=== PATIENT | female | born 1965 | race Caucasian/White ===

== ENCOUNTER → 2016-12-21 | Outpatient (CLI) | payer BC, OTHER ==
--- NOTE | 2016-12-21 10:43 | REP ---
BILATERAL DIGITAL SCREENING MAMMOGRAM: 12/21/2016 COMPARISON: 12/10/2015, 12/16/2014, diagnostic, 12/09/2014, screening mammogram, 12/06/2013, 05/30/2012. CLINICAL HISTORY: Breast carcinoma left breast in 2010, ductal hyperplasia of right breast. Most recent right breast biopsies negative in 2014. FINDINGS: Standard two-view mammography with additional exaggerated CC views for each breast. Standard mammographic views show scattered fibroglandular elements in the parenchyma in a pattern and distribution unchanged. Stereotactic clip, upper outer quadrant right breast and surgical clip near the axilla, unchanged. On the exaggerated CC view on the right, there is a nodular area of tissue asymmetry which is superimposition of breast elements seen to be normal appearance on the standard right CC view. I do not see a dominant mass or suspicious clusters of microcalcification on the right. There are coarse benign calcifications on the right. The left breast shows multiple surgical clips and postoperative changes in the inner half on the CC view. There are axillary surgical clips noted as well as a fat replaced axillary node on that left side. Some skin thickening is again seen and unchanged. IMPRESSION: BIRADS ACR category 2, benign. Benign findings. Stable examination. No evidence of malignancy. Bilateral post biopsy markers and/or surgical clips as described. No new or suspicious findings. Recommend followup mammography in 1 year. This mammogram was interpreted with the aid of an FDA-approved computer-aided detection system. A. Negative x-ray reports should not delay biopsy if a dominant or clinically suspicious mass is present. B. Four to eight percent of cancers are not identified by x-ray. C. Adenosis and dense breasts may obscure an underlying neoplasm. The patient states she/he had a clinical breast exam in 06/2016. The patient letter being requested is M1. Signed by Mark Juan MD 12/21/2016 08:16 P
== END ==
LOC: M RAD 09:05
PROVIDERS: ATTEND Nurse Practitioner Women's Health
DX: Z12.31 Encounter for screening mammogram for malignant neoplasm of breast (principal); Z85.3 Personal history of malignant neoplasm of breast

== ENCOUNTER → 2017-01-23 | Outpatient (REF) | payer OTHER ==
[2017-01-24 20:56] LABS: LUTEINIZING HORMONE 16.5 mIU/mL
[2017-01-24 20:59] LABS: ESTRADIOL < 19.0 PG/ML; FOLLICLE STIMULATING HORMONE 26.2 mIU/mL
== END ==
LOC: M LAB REF 17:08
PROVIDERS: ATTEND Internal Medicine Medical Oncology
DX: C50.919 Malignant neoplasm of unspecified site of unspecified female breast (principal)

== ENCOUNTER → 2017-02-09 | Outpatient (REF) | payer OTHER | LOC: M LAB REF 08:35 | PROVIDERS: ATTEND Nurse Practitioner Family | DX: E87.5 Hyperkalemia (principal) ==

== ENCOUNTER → 2017-03-28 | Outpatient (REF) | payer OTHER ==
[~2017-03-28] MED LIST: ACYC400T PO; ADV250INH INH; ALLE24TA8 PO; ATEN50TA2 PO; ATOR1TAB19 PO; CALCCHW8 PO; FENO160T10 PO; FISH100049 PO; FLUC150T PO; HYDR50TAB PO; JANU100T PO; LOSA25TA8 PO; METH2.5TA PO; MONT10TA2 PO; MULTTAB24 PO; VITA50003 PO; VITATAB11 PO
== END ==
LOC: M SFHCCLAY 08:09
PROVIDERS: ATTEND Nurse Practitioner Family
DX: E11.9 Type 2 diabetes mellitus without complications (principal); I10 Essential (primary) hypertension; E55.9 Vitamin D deficiency, unspecified

== ENCOUNTER → 2017-04-03 | Outpatient (CLI) | payer BC, OTHER ==
[~2017-04-03] VITALS: Ht 152.4 cm; Wt 99.8 kg
[~2017-04-03] MED LIST changes: +NS 1,000 ML IV ONE; +PROPOFOL 200 MG/20 ML VIAL As Ordered ONE
--- NOTE | 2017-04-03 09:25 | ROOR ---
Patient Name: Jo Altamirano Procedure Date: 04/03/2017 9:06 AM Date of : 1965 Age: 51 Room: [facility] Gender: Female Note Status: Finalized Procedure: Total Colonoscopy to Cecum Indications: High risk colon cancer surveillance: Personal history of colonic polyps, Last colonoscopy: 2012 Providers: Johnny Santo MD Referring MD: Danitza Darby NP Requesting Provider: Medicines: Monitored Anesthesia Care Complications: No immediate complications. Procedure: Pre-Anesthesia Assessment: - The heart rate, respiratory rate, oxygen saturations, blood pressure, adequacy of pulmonary ventilation, and response to care were monitored throughout the procedure. The Colonoscope was introduced through the anus and advanced to the cecum, identified by appendiceal orifice and ileocecal valve. The colonoscopy was performed without difficulty. The patient tolerated the procedure well. The quality of the bowel preparation was excellent. Findings: The perianal and digital rectal examinations were normal. Non-bleeding internal hemorrhoids were found during retroflexion. The hemorrhoids were small and Grade I (internal hemorrhoids that do not prolapse). No other significant abnormalities were identified in a careful examination of the remainder of the colon. The exam was otherwise without abnormality on direct and retroflexion views. Impression: - Non-bleeding internal hemorrhoids. - The examination was otherwise normal on direct and retroflexion views. - No specimens collected. - The exam was otherwise normal to the cecum. Recommendation: - Patient has a contact number available for emergencies. The signs and symptoms of potential delayed complications were discussed with the patient. Return to normal activities tomorrow. Written discharge instructions were provided to the patient. - High fiber diet. - Discharge patient to home. - Continue present medications. - Repeat colonoscopy in 5 years for surveillance. - Return to referring physician. - The findings and recommendations were discussed with the patient's family. Johnny Santo MD Johnny Santo MD 04/03/2017 9:24:58 AM This report has been signed electronically. Number of Addenda: 0 Note Initiated On: 04/03/2017 9:06 AM Estimated Blood Loss: Estimated blood loss: none.
[2017-04-03 09:45] VITALS: BP 115/68
== END | disposition home or self-care (01) ==
LOC: M OPP 08:33
PROVIDERS: ATTEND Internal Medicine Gastroenterology
DX: Z12.11 Encounter for screening for malignant neoplasm of colon (principal); K64.0 First degree hemorrhoids; Z86.010 Personal history of colon polyps; I10 Essential (primary) hypertension; E78.5 Hyperlipidemia, unspecified; R01.1 Cardiac murmur, unspecified; E11.9 Type 2 diabetes mellitus without complications; Z85.3 Personal history of malignant neoplasm of breast; Z92.3 Personal history of irradiation; L40.9 Psoriasis, unspecified; Z78.0 Asymptomatic menopausal state; J45.909 Unspecified asthma, uncomplicated; R06.83 Snoring; Z86.19 Personal history of other infectious and parasitic diseases; Z91.040 Latex allergy status; Z88.0 Allergy status to penicillin; Z88.8 Allergy status to other drugs, medicaments and biological substances; Z88.2 Allergy status to sulfonamides; Z79.84 Long term (current) use of oral hypoglycemic drugs; Z79.899 Other long term (current) drug therapy

== ENCOUNTER 2017-08-01 13:47 | Emergency (ER) | payer BC, OTHER ==
[~2017-08-01] VITALS: Ht 152.4 cm; Wt 100.0 kg
[2017-08-01 13:47] VITALS: BP 147/68
[~2017-08-01 13:47] MED LIST changes: -NS 1,000 ML IV ONE; -PROPOFOL 200 MG/20 ML VIAL As Ordered ONE; +VITA1CAP40 PO; -VITA50003 PO
== END 2017-08-01 13:55 | disposition left against medical advice (07) ==
LOC: M ED 13:47
DX: N93.9 Abnormal uterine and vaginal bleeding, unspecified (principal); Z53.21 Procedure and treatment not carried out due to patient leaving prior to being seen by health care provider

== ENCOUNTER 2017-08-01 15:49 | Day surgery (SDC) | payer BC, OTHER ==
[2017-08-01] MEDS ORDERED: LR 1,000 ML IV SCH ×3 (16:00→22:00)
[2017-08-01 19:12] LABS: MEAN CORPUSCULAR HEMOGLOBIN 30.2 pg (27.0-33.0); MEAN CORPUSCULAR VOLUME 91.3 fl (80.0-96.0); RED CELL DISTRIBUTION WIDTH 13.4 % (11.5-14.5); WHITE BLOOD COUNT 10.1 10^3/uL (4.0-10.0)
[2017-08-01] MEDS ORDERED: fentaNYL 100 MCG/2 ML INJECTION (J3010) As Ordered ONE (20:32)
[2017-08-01] MEDS ORDERED: MIDAZOLAM INJ 2 MG/2 ML VIAL (J2250) As Ordered ONE (20:32)
[2017-08-01] MEDS ORDERED: ONDANSETRON 4MG/2ML VIAL (J2405) As Ordered ONE (20:38)
[2017-08-01] MEDS ORDERED: PROPOFOL 200 MG/20 ML VIAL As Ordered ONE (21:08)
[2017-08-01] MEDS ORDERED: LIDOCAINE 2% INJ 100 MG/5 ML SDV (FOR ANES.) As Ordered ONE (21:09)
[2017-08-01] MEDS ORDERED: IBUPROFEN 600 MG TAB As Ordered ONE (21:33)
[2017-08-01] MEDS ORDERED: IBUPROFEN 600 MG TAB PO PRN (21:45)
[2017-08-01] MEDS ORDERED: fentaNYL 100 MCG/2 ML INJECTION (J3010) IV PRN (22:00)
[2017-08-01] MEDS ORDERED: PERCOCET 5MG/325MG TAB PO PRN (22:00)
[2017-08-01] MEDS ORDERED: ONDANSETRON 4MG/2ML VIAL (J2405) IV PRN (22:00)
[2017-08-01 22:15] VITALS: BP 140/64
--- NOTE | 2017-08-02 08:47 | RO ---
DATE OF PROCEDURE: 08/01/2017 PREOPERATIVE DIAGNOSIS/INDICATION FOR SURGERY: Postmenopausal bleeding and 3 cm endometrial stripe. POSTOPERATIVE DIAGNOSES: 1. Postmenopausal bleeding and 3 cm endometrial stripe. 2. Intrauterine synechiae and polyp. PROCEDURE: Dilatation and curettage, hysteroscopy, and MyoSure endometrial resection with removal of polyp and synechiae. SURGEON: Verónica Mosqueda MD EDGE GRINDER MACHINE: ANESTHESIA: Monitored anesthesia care (MAC). BRIEF DESCRIPTION OF PROCEDURE AND FINDINGS: Jo was brought to the operating room where sufficient anesthesia was induced and she was prepped, draped and positioned in the usual sterile fashion with the bladder then emptied. 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 The anterior aspect of the cervix was grasped with a single tooth tenaculum. With some effort under anesthesia, it would be possible to approach this uterus from below. The uterus was then carefully evaluated with the cervix dilated and the MyoSure hysteroscope placed. As noted in the operative photos, some intrauterine synechiae and a small polyp were noted and some blood clot. All of which probably contributed together to create the degree of thickening seen on her preoperative ultrasound. The polyp itself was not 3 cm across based on the visual appearance, but of course there is no calipers at the end of he MyoSure. We were able to place the XL MyoSure and resect not only the polyp, but also the synechiae and several areas of endometrium that did appear to be bleeding despite the patient's menopausal state. Following this, we saw a normal tubal ostia and with the MyoSure resection completed, we also passed the endometrial curette and had a normal uterine cry throughout and then the procedure was ended. ESTIMATED BLOOD LOSS FOR PROCEDURE: About 10 mL. FLUID REPLACEMENT: Crystalloid. SPECIMENS: Endometrium. The sampling from the MyoSure and, of course, the curetting. COMPLICATIONS: None. CONDITION AND DISPOSITION: Jo tolerated the procedure well and was recovering in the recovery room in good condition.
== END 2017-08-01 22:40 | disposition home or self-care (01) ==
LOC: M SDC 15:49
PROVIDERS: ATTEND Obstetrics & Gynecology
DX: N84.0 Polyp of corpus uteri (principal); N95.0 Postmenopausal bleeding; N85.6 Intrauterine synechiae; I10 Essential (primary) hypertension; E11.9 Type 2 diabetes mellitus without complications; J45.909 Unspecified asthma, uncomplicated; Z79.51 Long term (current) use of inhaled steroids; Z79.899 Other long term (current) drug therapy; Z88.2 Allergy status to sulfonamides; Z88.0 Allergy status to penicillin
CPT/HCPCS: 36415; 58558; 85027; 86850; 86900; 86901; 88305; J2250; J2405; J3010

== ENCOUNTER → 2017-11-01 | Outpatient (CLI) | payer BC, OTHER | LOC: M RAD 16:44 | DX: N95.0 Postmenopausal bleeding (principal); N85.2 Hypertrophy of uterus; D25.9 Leiomyoma of uterus, unspecified | CPT/HCPCS: 76856 ==

== ENCOUNTER → 2017-12-05 | Outpatient (REF) | payer OTHER ==
[2017-12-05 12:28] LABS: HEMATOCRIT 44.7 % (36.0-47.0); HEMOGLOBIN 14.3 g/dl (12.0-16.0); MEAN CORPUSCULAR HEMOGLOBIN 29.2 pg (27.0-33.0); MEAN CORPUSCULAR VOLUME 91.2 fl (80.0-96.0); PLATELET COUNT, AUTOMATED 129 10^3/uL (150-450); RED CELL DISTRIBUTION WIDTH 14.2 % (11.5-14.5); WHITE BLOOD COUNT 8.3 10^3/uL (4.0-10.0)
[2017-12-05 12:58] LABS: TOTAL 25(OH) VITAMIN D 54.6 NG/ML (30.0-100.0)
[2017-12-05 13:02] LABS: ESTIMATED AVERAGE GLUCOSE 209 MG/DL (60-110); HEMOGLOBIN A1c 8.9 %
[2017-12-05 13:24] LABS: ALBUMIN 4.2 GM/DL (3.2-5.2); ALBUMIN/GLOBULIN RATIO 1.17 (1.00-1.93); ALKALINE PHOSPHATASE 74 U/L (45-117); ALT/SGPT 27 U/L (12-78); ANION GAP 13 MEQ/L (8-16); AST/SGOT 17 U/L (7-37); BILIRUBIN,TOTAL 0.9 MG/DL (0.2-1.0); BLOOD UREA NITROGEN 15 MG/DL (7-18); CALCIUM LEVEL 9.5 MG/DL (8.5-10.1); CARBON DIOXIDE LEVEL 25 MEQ/L (21-32); CHLORIDE LEVEL 98 MEQ/L (98-107); CHOLESTEROL LEVEL 220 MG/DL (<200); CHOLESTEROL RISK RATIO 5.641 (<5); CREATININE FOR GFR 0.71 MG/DL (0.55-1.30); GLOMERULAR FILTRATION RATE > 60.0 (>51); GLUCOSE, FASTING 237 MG/DL (70-100); HDL CHOLESTEROL 39 MG/DL (>40); NON-HDL-C 181 MG/DL; POTASSIUM SERUM 4.1 MEQ/L (3.5-5.1); SODIUM LEVEL 136 MEQ/L (136-145); TOTAL PROTEIN 7.8 GM/DL (6.4-8.2); TRIGLYCERIDES LEVEL 235 MG/DL (<150)
== END ==
LOC: M SFHCCLAY 09:36
DX: E11.9 Type 2 diabetes mellitus without complications (principal); E78.4 Other hyperlipidemia; E55.9 Vitamin D deficiency, unspecified

== ENCOUNTER → 2017-12-06 | Outpatient (REF) | payer OTHER ==
[2017-12-06 12:50] LABS: CREATININE, URINE 84.1 MG/DL; MALB URINE SIEMENS 54.2 MG/L; MAU/CREAT RATIO 64.4 MCG/MG (0.0-30.0); TOTAL PROTEIN,RANDOM URINE 14.8 MG/DL (0.0-12.0)
== END ==
LOC: M SFHCCLAY 08:09
DX: E11.9 Type 2 diabetes mellitus without complications (principal)

== ENCOUNTER → 2017-12-25 | Outpatient (CLI) | payer BC, OTHER | LOC: M RAD 09:02 | DX: Z12.31 Encounter for screening mammogram for malignant neoplasm of breast (principal); Z85.3 Personal history of malignant neoplasm of breast | CPT/HCPCS: 77067 ==

== ENCOUNTER → 2018-01-09 | Outpatient (REF) | payer OTHER ==
[2018-01-09 12:34] LABS: HEMATOCRIT 42.8 % (36.0-47.0); HEMOGLOBIN 13.8 g/dl (12.0-16.0); MEAN CORPUSCULAR HGB CONC 32.2 g/dl (32.0-36.5); PLATELET COUNT, AUTOMATED 182 10^3/uL (150-450); RED CELL DISTRIBUTION WIDTH 13.4 % (11.5-14.5); WHITE BLOOD COUNT 8.9 10^3/uL (4.0-10.0)
[2018-01-09 14:05] LABS: ESTIMATED AVERAGE GLUCOSE 197 MG/DL (60-110); HEMOGLOBIN A1c 8.5 %
== END ==
LOC: M SFHCCLAY 08:36
DX: E11.9 Type 2 diabetes mellitus without complications (principal)
CPT/HCPCS: 83036

== ENCOUNTER → 2018-03-06 | Outpatient (REF) | payer OTHER ==
[2018-03-06 11:41] LABS: CHOLESTEROL LEVEL 202 MG/DL (<200); CHOLESTEROL RISK RATIO 6.312 (<5); HDL CHOLESTEROL 32 MG/DL (>40); LDL CHOLESTEROL 136.8 MG/DL (<100); NON-HDL-C 170 MG/DL; TRIGLYCERIDES LEVEL 166 MG/DL (<150)
== END ==
LOC: M SFHCCLAY 07:58
DX: E78.4 Other hyperlipidemia (principal); E55.9 Vitamin D deficiency, unspecified

== ENCOUNTER → 2018-06-18 | Outpatient (REF) | payer OTHER ==
[2018-06-18 17:24] LABS: CHOLESTEROL LEVEL 203 MG/DL (<200); CHOLESTEROL RISK RATIO 5.342 (<5); ESTIMATED AVERAGE GLUCOSE 174 MG/DL (60-110); HDL CHOLESTEROL 38 MG/DL (>40); HEMOGLOBIN A1c 7.7 %; NON-HDL-C 165 MG/DL; TRIGLYCERIDES LEVEL 140 MG/DL (<150)
[2018-06-18 17:25] LABS: TOTAL 25(OH) VITAMIN D 50.9 NG/ML (30.0-100.0)
== END ==
LOC: M SFHCCLAY 11:15
DX: E78.4 Other hyperlipidemia (principal); E11.9 Type 2 diabetes mellitus without complications; E55.9 Vitamin D deficiency, unspecified
CPT/HCPCS: 83036

== ENCOUNTER → 2018-08-09 | Outpatient (CLI) | payer BC, OTHER | LOC: M RAD 07:59 | DX: M89.8X0 Other specified disorders of bone, multiple sites (principal); Z85.3 Personal history of malignant neoplasm of breast; M51.36 Other intervertebral disc degeneration, lumbar region; M51.24 Other intervertebral disc displacement, thoracic region; M15.9 Polyosteoarthritis, unspecified | CPT/HCPCS: 78306 ==

== ENCOUNTER → 2018-08-15 | Outpatient (REF) | payer OTHER | LOC: M LAB REF 19:25 | DX: N87.0 Mild cervical dysplasia (principal) | CPT/HCPCS: 88304 ==

== ENCOUNTER → 2018-10-01 | Outpatient (REF) | payer OTHER ==
[2018-10-01 17:14] LABS: CHOLESTEROL LEVEL 188 MG/DL (<200); CHOLESTEROL RISK RATIO 5.696 (<5); HDL CHOLESTEROL 33 MG/DL (>40); LDL CHOLESTEROL 121 MG/DL (<100); NON-HDL-C 155 MG/DL; TRIGLYCERIDES LEVEL 171 MG/DL (<150)
[2018-10-01 17:22] LABS: TOTAL 25(OH) VITAMIN D 59.7 NG/ML (30.0-100.0)
[2018-10-01 17:31] LABS: ESTIMATED AVERAGE GLUCOSE 183 MG/DL (60-110)
[2018-10-01 17:34] LABS: MALB URINE SIEMENS 55.1 MG/L; MAU/CREAT RATIO 38.5 MCG/MG (0.0-30.0)
== END ==
LOC: M SFHCCLAY 11:13
DX: E11.9 Type 2 diabetes mellitus without complications (principal); E78.49 Other hyperlipidemia; E55.9 Vitamin D deficiency, unspecified
CPT/HCPCS: 83036

== ENCOUNTER → 2019-01-01 | Outpatient (CLI) | payer BC, OTHER ==
[~2019-01-01] MED LIST changes: +DEBL1TAB PO; +FARX1TAB3 PO; +LOSA25TA14 PO; -LOSA25TA8 PO; +METH2.5T48 PO; -METH2.5TA PO; -VITA1CAP40 PO; +VITA50005 PO
--- NOTE | 2019-01-01 13:28 | REPMRS ---
Patient History The patient states she had a clinical breast exam in 2017. Patient has history of breast cancer at age 46 and is nulliparous. Family history of breast cancer at age 70 in maternal grandmother. Benign radio exam breast specimen of the right breast, January 05, 2015. Benign stereotatic loc for ea lesion of the right breast, January 05, 2015. Localization of Breast Nodule of both breasts, August 08, 2011. Took tamoxifen for 8 months. 3D TOMOSYNTHESIS WAS PERFORMED. Digital Mammo Screening Bilat: January 01, 2019 - Exam #: [id number] Bilateral CC and MLO view(s) were taken. Technologist: Bella Palumbo, Technologist Prior study comparison: December 25, 2017, bilateral digital mammo screening bilat performed at [facility]. December 21, 2016, bilateral digital mammo screening bilat performed at [facility]. FINDINGS: There are scattered fibroglandular densities. There is a fairly symmetric fibroglandular pattern in both breasts. There has been no interval development of masses, areas of architectural distortion or clusters of microcalcifications typical of malignancy. Assessment: BI-RADS/ACR category 2 mammogram. Benign Findings. Recommendation Routine screening mammogram of both breasts in 1 year (for women over age 40). This mammogram was interpreted with the aid of an FDA-approved computer-aided dectection system. Electronically Signed By: Jassi Piper MD 01/01/19 [id number]
== END ==
LOC: M RAD 10:55
PROVIDERS: ATTEND Specialist
DX: Z12.31 Encounter for screening mammogram for malignant neoplasm of breast (principal)

== ENCOUNTER → 2019-02-19 | Outpatient (REF) | payer OTHER ==
[~2019-02-19] MED LIST changes: +ALLE24TA7 PO; -ALLE24TA8 PO
[2019-02-19 17:33] LABS: HEMOGLOBIN A1c 8.3 %
[2019-02-19 17:51] LABS: ALBUMIN 3.9 GM/DL (3.2-5.2); ALT/SGPT 35 U/L (12-78); BILIRUBIN,TOTAL 0.4 MG/DL (0.2-1.0); BLOOD UREA NITROGEN 15 MG/DL (7-18); CALCIUM LEVEL 8.7 MG/DL (8.5-10.1); CARBON DIOXIDE LEVEL 29 MEQ/L (21-32); CHLORIDE LEVEL 103 MEQ/L (98-107); CHOLESTEROL LEVEL 175 MG/DL (<200); CHOLESTEROL RISK RATIO 5.147 (<5); CREATININE FOR GFR 0.58 MG/DL (0.55-1.30); GLOMERULAR FILTRATION RATE > 60.0 (>51); GLUCOSE, FASTING 185 MG/DL (70-100); HDL CHOLESTEROL 34 MG/DL (>40); LDL CHOLESTEROL 113 MG/DL (<100); NON-HDL-C 141 MG/DL; POTASSIUM SERUM 4.1 MEQ/L (3.5-5.1); SODIUM LEVEL 139 MEQ/L (136-145); TOTAL 25(OH) VITAMIN D 65.3 NG/ML (30.0-100.0); TOTAL PROTEIN 6.6 GM/DL (6.4-8.2); TRIGLYCERIDES LEVEL 141 MG/DL (<150)
[2019-02-19 17:55] LABS: HEMATOCRIT 43.7 % (36.0-47.0); HEMOGLOBIN 13.9 g/dl (12.0-15.5); MEAN CORPUSCULAR HEMOGLOBIN 29.5 pg (27.0-33.0); MEAN CORPUSCULAR HGB CONC 31.8 g/dl (32.0-36.5); MEAN CORPUSCULAR VOLUME 92.8 fl (80.0-96.0); PLATELET COUNT, AUTOMATED 191 10^3/uL (150-450); RED BLOOD COUNT 4.71 10^6/uL (4.00-5.40); WHITE BLOOD COUNT 7.8 10^3/uL (4.0-10.0)
== END ==
LOC: M SFHCCLAY 09:12
PROVIDERS: ATTEND Nurse Practitioner Family
DX: I10 Essential (primary) hypertension (principal); E11.9 Type 2 diabetes mellitus without complications; E78.49 Other hyperlipidemia; R53.83 Other fatigue; E55.9 Vitamin D deficiency, unspecified

== ENCOUNTER → 2019-03-05 | Outpatient (REF) | payer OTHER ==
[2019-03-07 14:27] LABS: HPV HYBRID CAPTURE II Positive (Negative)
== END ==
LOC: M LAB REF 16:55
PROVIDERS: ATTEND Specialist
DX: R87.610 Atypical squamous cells of undetermined significance on cytologic smear of cervix (ASC-US) (principal)
CPT/HCPCS: 87624; G0123

== ENCOUNTER 2019-03-28 11:23 | Emergency (ER) | payer BC, OTHER ==
[~2019-03-28] VITALS: Ht 165.1 cm; Wt 95.5 kg
[2019-03-28 12:20] LABS: BASO % 0.4 % (0.0-1.0); EOS # 0.1 10^3/uL (0.0-0.50); EOS % 1.2 % (0.0-3.0); HEMATOCRIT 43.3 % (36.0-47.0); HEMOGLOBIN 14.5 g/dl (12.0-15.5); LYMPH # 1.5 10^3/uL (1.5-4.5); LYMPH % 13.4 % (24.0-44.0); MEAN CORPUSCULAR HEMOGLOBIN 30.9 pg (27.0-33.0); MEAN CORPUSCULAR HGB CONC 33.5 g/dl (32.0-36.5); MEAN CORPUSCULAR VOLUME 92.1 fl (80.0-96.0); MONO # 0.9 10^3/uL (0.0-0.8); MONO % 8.2 % (0.0-5.0); NEUTROPHILS # 8.6 10^3/uL (1.8-7.7); NEUTROPHILS % 75.9 % (36.0-66.0); PLATELET COUNT, AUTOMATED 233 10^3/uL (150-450); WHITE BLOOD COUNT 11.3 10^3/uL (4.0-10.0)
[2019-03-28] MEDS ORDERED: VALA500T5 PO (12:24)
[2019-03-28 12:39] LABS: INR 0.99; PROTHROMBIN TIME 13.2 SECONDS (12.1-14.4)
[2019-03-28 12:57] LABS: ALBUMIN 3.7 GM/DL (3.2-5.2); ALT/SGPT 26 U/L (12-78); BILIRUBIN,DIRECT 0.2 MG/DL (0.0-0.2); BILIRUBIN,TOTAL 1.1 MG/DL (0.2-1.0); BLOOD UREA NITROGEN 10 MG/DL (7-18); CALCIUM LEVEL 9.4 MG/DL (8.5-10.1); CARBON DIOXIDE LEVEL 25 MEQ/L (21-32); CHLORIDE LEVEL 103 MEQ/L (98-107); CK-MB VALUE MASS < 1.0 NG/ML (<3.6); CPK CREATINE PHOSPHOKINASE 41 U/L (26-192); CREATININE FOR GFR 0.48 MG/DL (0.55-1.30); GLOMERULAR FILTRATION RATE > 60.0 (>51); GLUCOSE, FASTING 167 MG/DL (70-100); LIPASE 381 U/L (73-393); MB/CK RELATIVE INDEX 2.44 (< OR =4); NT-PRO BNP 34 PG/ML (<125); SODIUM LEVEL 139 MEQ/L (136-145); TOTAL PROTEIN 7.6 GM/DL (6.4-8.2); TROPONIN I < 0.02 NG/ML (< 0.10)
[2019-03-28] MEDS ORDERED: KETOROLAC 30 MG/ML VIAL (J1885) IV ONE (13:30)
--- NOTE | 2019-03-28 14:28 | REP ---
Clinical: Right upper quadrant pain. Technique: Real time kumar scale ultrasound examination using curved array transducer. Findings: Liver is increased echogenicity consistent with fatty infiltration. No focal hepatic lesion identified. Pancreas is incompletely evaluated but visualized portions appear normal. The gallbladder is unremarkable and without gallstones, wall thickening, or pericholecystic fluid. No biliary ductal dilatation is appreciated and the common bile duct measures 12.0 x 5.9 x 5.9 cm. No ascites. Impression: Hepatic steatosis. Electronically Signed by Kb Haas MD 03/28/2019 02:20 P
--- NOTE | 2019-03-28 15:04 | REP ---
CHEST, SINGLE VIEW: There is no evidence of acute infiltrate. No pleural effusion is seen. The heart is normal in size. The mediastinal silhouette is unremarkable. The visualized osseous structures are intact. IMPRESSION: No acute pulmonary disease. Electronically Signed by Jassi Piper MD 03/28/2019 04:35 P
--- NOTE | 2019-03-28 16:25 | REP ---
Clinical: Right renal colic/flank pain. Technique: Axial noncontrast images from the lung bases to the pubic symphysis with coronal and sagittal re-formations. Findings: Subtle inflammatory stranding in the mid mesentery adjacent to the pancreatic head/uncinate process and duodenum likely represent early acute pancreatitis and correlation is recommended. Evaluation of the gallbladder suggest the possibility of layering sludge without obvious acute cholecystitis. Liver, spleen, bilateral adrenal glands and kidneys are normal for noncontrast evaluation. Small large bowel without obstruction or acute inflammatory process. Normal terminal ileum and appendix identified in the right lower quadrant. Pelvis demonstrates normal bladder and age-appropriate uterus/adnexa with calcified myomatous changes. No ascites. No free air. No significant adenopathy. Abdominal aorta without aneurysm. Musculoskeletal structures demonstrate age-related degenerative changes. Impression: 1. Findings most suggestive of acute pancreatitis and correlation is recommended. Small amount of layering sludge in the gallbladder cannot be excluded without obvious associated acute cholecystitis. 2. Normal appearance to the urinary tract system. 3. No further acute abdominopelvic pathology appreciated. Electronically Signed by Kb Haas MD 03/28/2019 04:17 P
[2019-03-28] MEDS ORDERED: NORC1TAB7 PO (17:46)
[2019-03-28 18:15] VITALS: BP 140/61
--- NOTE | 2019-03-29 05:54 | ECGEPIP ---
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
--- NOTE | 2019-03-30 08:06 | ED PDOC ---
Post-Departure Follow-Up leanne zuñiga faxed formal report of ct abd/p for fu Elver Strickland MD Mar 30, 2019 08:06
== END 2019-03-28 18:32 | disposition home or self-care (01) ==
LOC: M ED 11:23
DX: K83.8 Other specified diseases of biliary tract (principal); K85.90 Acute pancreatitis without necrosis or infection, unspecified; R11.0 Nausea; E11.9 Type 2 diabetes mellitus without complications; I10 Essential (primary) hypertension; E78.5 Hyperlipidemia, unspecified; J45.909 Unspecified asthma, uncomplicated; Z85.3 Personal history of malignant neoplasm of breast; Z88.0 Allergy status to penicillin; Z88.2 Allergy status to sulfonamides; Z88.8 Allergy status to other drugs, medicaments and biological substances; Z91.040 Latex allergy status; Z79.899 Other long term (current) drug therapy; Z79.51 Long term (current) use of inhaled steroids
CPT/HCPCS: 71045; 74176; 76705; 80048; 80076; 82550; 82553; 83690; 83880; 84443; 84484; 85025; 85610; 93005; 93041; 94760; 96374; 99285; J1885

== ENCOUNTER → 2019-06-17 | Outpatient (REF) | payer OTHER ==
[~2019-06-17] MED LIST changes: +NORC1TAB7 PO; +VALA500T5 PO
[2019-06-17 17:03] LABS: CHOLESTEROL RISK RATIO 5.529 (<5)
[2019-06-17 17:13] LABS: HEMOGLOBIN A1c 8.1 %
[2019-06-17 17:23] LABS: CREATININE, URINE 95.1 MG/DL; MALB URINE SIEMENS 38.1 MG/L
== END ==
LOC: M SFHCCLAY 11:05
PROVIDERS: ATTEND Nurse Practitioner Family
DX: E11.9 Type 2 diabetes mellitus without complications (principal); E78.49 Other hyperlipidemia

== ENCOUNTER → 2019-11-18 | Outpatient (REF) | payer OTHER ==
[2019-11-18 16:58] LABS: CHOLESTEROL RISK RATIO 5.552 (<5)
[2019-11-18 17:08] LABS: TOTAL 25(OH) VITAMIN D 59.1 NG/ML (30.0-100.0)
== END ==
LOC: M SFHCCLAY 11:15
PROVIDERS: ATTEND Nurse Practitioner Family
DX: E11.9 Type 2 diabetes mellitus without complications (principal); E78.5 Hyperlipidemia, unspecified; E55.9 Vitamin D deficiency, unspecified

== ENCOUNTER → 2020-01-13 | Outpatient (CLI) | payer BC, OTHER ==
[~2020-01-13] MED LIST changes: -MONT10TA2 PO; +MONT10TA4 PO
--- NOTE | 2020-01-13 14:03 | REPMRS ---
Patient History The patient states she had a clinical breast exam in February 2019.Family history of breast cancer at age 70 in maternal grandmother. Benign radio exam breast specimen of the right breast, January 05, 2015. Benign stereotatic loc for ea lesion of the right breast, January 05, 2015. Localization of Breast Nodule of both breasts, August 08, 2011. Took tamoxifen for 8 months. 3D TOMOSYNTHESIS WAS PERFORMED. Digital Woman Screen Mammo: January 13, 2020 - Exam #: [id number] Bilateral CC and MLO view(s) were taken. Technologist: Bella Palumbo, Technologist Prior study comparison: January 01, 2019, bilateral digital mammo screening bilat, performed at [facility]. December 25, 2017, bilateral digital mammo screening bilat, performed at [facility]. FINDINGS: The breast tissue is heterogeneously dense. This may lower the sensitivity of mammography. There has been no change in the appearance of the mammogram from the prior studies. There is a moderate amount of residual fibroglandular tissue which is fairly symmetric. There is no interval development of dominant mass, areas of architectural distortion, or clustered microcalcification typical of malignancy. Assessment: BI-RADS/ACR category 1 mammogram. Negative Mammogram. Recommendation Routine screening mammogram in 1 year (for women over age 40). This mammogram was interpreted with the aid of an FDA-approved computer-aided dectection system. Electronically Signed By: Jassi Piper MD 01/13/20 [id number]
== END ==
LOC: M WHC 13:22
PROVIDERS: ATTEND Nurse Practitioner Family
DX: Z12.31 Encounter for screening mammogram for malignant neoplasm of breast (principal)

== ENCOUNTER → 2020-02-25 | Outpatient (REF) | payer OTHER ==
[2020-02-25 11:16] LABS: HEMATOCRIT 47.7 % (36.0-47.0); HEMOGLOBIN 15.2 g/dl (12.0-15.5); MEAN CORPUSCULAR HEMOGLOBIN 29.4 pg (27.0-33.0); MEAN CORPUSCULAR HGB CONC 31.9 g/dl (32.0-36.5); MEAN CORPUSCULAR VOLUME 92.3 fl (80.0-96.0); PLATELET COUNT, AUTOMATED 180 10^3/uL (150-450); RED BLOOD COUNT 5.17 10^6/uL (4.00-5.40); WHITE BLOOD COUNT 8.2 10^3/uL (4.0-10.0)
[2020-02-25 11:25] LABS: ALBUMIN 3.9 GM/DL (3.2-5.2); ALT/SGPT 37 U/L (12-78); BILIRUBIN,TOTAL 0.6 MG/DL (0.2-1.0); BLOOD UREA NITROGEN 15 MG/DL (7-18); CALCIUM LEVEL 9.3 MG/DL (8.5-10.1); CARBON DIOXIDE LEVEL 28 MEQ/L (21-32); CHLORIDE LEVEL 102 MEQ/L (98-107); CHOLESTEROL LEVEL 205 MG/DL (<200); CHOLESTEROL RISK RATIO 6.406 (<5); CREATININE FOR GFR 0.59 MG/DL (0.55-1.30); GLOMERULAR FILTRATION RATE > 60.0 (>51); GLUCOSE, FASTING 204 MG/DL (70-100); HDL CHOLESTEROL 32 MG/DL (>40); LDL CHOLESTEROL 126 MG/DL (<100); NON-HDL-C 173 MG/DL; POTASSIUM SERUM 4.5 MEQ/L (3.5-5.1); SODIUM LEVEL 138 MEQ/L (136-145); TOTAL PROTEIN 7.5 GM/DL (6.4-8.2); TRIGLYCERIDES LEVEL 235 MG/DL (<150)
[2020-02-25 11:32] LABS: TOTAL 25(OH) VITAMIN D 59.4 NG/ML (30.0-100.0)
[2020-02-25 11:51] LABS: HEMOGLOBIN A1c 8.7 %
[2020-02-25 11:53] LABS: CREATININE, URINE 93.7 MG/DL; MALB URINE SIEMENS 15.1 MG/L; MAU/CREAT RATIO 16.1 MCG/MG (0.0-30.0)
== END ==
LOC: M SFHCCLAY 08:50
PROVIDERS: ATTEND Nurse Practitioner Family
DX: E11.9 Type 2 diabetes mellitus without complications (principal); I10 Essential (primary) hypertension; E78.5 Hyperlipidemia, unspecified; E55.9 Vitamin D deficiency, unspecified

== ENCOUNTER → 2020-06-15 | Outpatient (REF) | payer OTHER ==
[~2020-06-15] MED LIST changes: +ALBU8.5H INH; +ALLE60TA69 PO; +CLAR500T97 PO; +FLAG500T PO; +LANTINJ4 SC
[2020-08-10 21:40] LABS: HEMOGLOBIN A1c 8.5 %
[2020-08-11 00:44] LABS: CHOLESTEROL RISK RATIO 6.066 (<5)
== END ==
LOC: M SFHCCLAY 17:04
PROVIDERS: ATTEND Nurse Practitioner Family
DX: E11.9 Type 2 diabetes mellitus without complications (principal); E78.5 Hyperlipidemia, unspecified

== ENCOUNTER → 2020-12-08 | Outpatient (REF) | payer OTHER ==
[~2020-12-08] MED LIST changes: +MONT10TA10 PO; -MONT10TA4 PO
[2020-12-08 16:45] LABS: CREATININE, URINE 82.2 MG/DL; MAU/CREAT RATIO 8.5 MCG/MG (0.0-30.0); THYROID STIMULATING HORMONE 2.39 uIU/ML (0.358-3.740); TOTAL 25(OH) VITAMIN D 58.2 NG/ML (30.0-100.0)
[2020-12-08 18:04] LABS: HEMOGLOBIN A1c 7.9 %
== END ==
LOC: M SFHCCLAY 09:41
PROVIDERS: ATTEND Nurse Practitioner Family
DX: E11.9 Type 2 diabetes mellitus without complications (principal); E78.5 Hyperlipidemia, unspecified; E03.9 Hypothyroidism, unspecified; E55.9 Vitamin D deficiency, unspecified

== ENCOUNTER → 2021-01-14 | Outpatient (CLI) | payer BC ==
--- NOTE | 2021-01-14 10:22 | REPMRS ---
Patient History The patient states she had a clinical breast exam in 07/2020 Patient is postmenopausal, has history of breast cancer at age 46, and is nulliparous. Family history of breast cancer at age 70 in maternal grandmother. Benign radio exam breast specimen of the right breast, January 05, 2015. Benign stereotatic loc for ea lesion of the right breast, January 05, 2015. Localization of Breast Nodule of both breasts, August 08, 2011. Radiation therapy of the left breast, 2010. Took hormonal contraceptives for 25 years. Took tamoxifen for 5 months. Digital Woman Screen Mammo: January 14, 2021 - Exam #: [id number] Bilateral CC and MLO view(s) were taken. Technologist: Kenya Melgar, Technologist Prior study comparison: January 13, 2020, bilateral digital woman screen mammo performed at [facility]. January 01, 2019, bilateral digital mammo screening bilat, performed at [facility]. December 25, 2017, bilateral digital mammo screening bilat, performed at [facility]. FINDINGS: There are scattered fibroglandular densities. The Volpara volumetric breast density category is:B. There are clips in the axillary regions bilaterally and 2 needle biopsy marker clips are noted in the upper outer quadrant of the right breast. There are stable post treatment changes in the left breast. There has been no change in the appearance of the mammogram from the prior studies. There is a mild amount of scattered fibroglandular density which is fairly symmetric. There is no interval development of dominant mass, architectural distortion, or grouped microcalcification suggestive of malignancy. 3-D tomosynthesis shows no additional findings. Assessment: BI-RADS/ACR category 2 mammogram. Benign Findings. Recommendation Routine screening mammogram of both breasts in 1 year (for women over age 40). This mammogram was interpreted with the aid of an FDA-approved computer-aided dectection system. Electronically Signed By: Donnie Fisher MD 01/14/21 [id number]
== END ==
LOC: M WHC 09:21
PROVIDERS: ATTEND Internal Medicine Medical Oncology
DX: Z12.31 Encounter for screening mammogram for malignant neoplasm of breast (principal); Z86.018 Personal history of other benign neoplasm; Z92.3 Personal history of irradiation; Z92.0 Personal history of contraception

== ENCOUNTER → 2021-03-30 | Outpatient (REF) | payer OTHER ==
[~2021-03-30] MED LIST changes: +ACYC1TAB PO; -ACYC400T PO
[2021-03-30 13:08] LABS: CHOLESTEROL RISK RATIO 4.783 (<5)
== END ==
LOC: M SFHCCLAY 09:16
PROVIDERS: ATTEND Nurse Practitioner Family
DX: E78.5 Hyperlipidemia, unspecified (principal); E11.9 Type 2 diabetes mellitus without complications

== ENCOUNTER → 2021-06-21 | Outpatient (REF) | payer OTHER | LOC: M SFHCWAGY 18:58 | PROVIDERS: ATTEND Specialist | DX: Z12.4 Encounter for screening for malignant neoplasm of cervix (principal); R87.612 Low grade squamous intraepithelial lesion on cytologic smear of cervix (LGSIL) ==

== ENCOUNTER → 2021-07-22 | Outpatient (REF) | payer OTHER | LOC: M SFHCWAGY 18:52 | PROVIDERS: ATTEND Specialist | DX: R87.612 Low grade squamous intraepithelial lesion on cytologic smear of cervix (LGSIL) (principal) ==

== ENCOUNTER → 2021-07-27 | Outpatient (REF) | payer OTHER ==
[2021-07-27 11:52] LABS: HEMATOCRIT 42.7 % (36.0-47.0); HEMOGLOBIN 13.5 g/dl (12.0-15.5); MEAN CORPUSCULAR HEMOGLOBIN 29.3 pg (27.0-33.0); MEAN CORPUSCULAR HGB CONC 31.6 g/dl (32.0-36.5); MEAN CORPUSCULAR VOLUME 92.6 fl (80.0-96.0); PLATELET COUNT, AUTOMATED 231 10^3/uL (150-450); RED BLOOD COUNT 4.61 10^6/uL (4.00-5.40); WHITE BLOOD COUNT 7.9 10^3/uL (4.0-10.0)
[2021-07-27 12:10] LABS: HEMOGLOBIN A1c 7.8 %
[2021-07-27 12:33] LABS: ALBUMIN 3.7 GM/DL (3.2-5.2); ALT/SGPT 29 U/L (12-78); BILIRUBIN,TOTAL 0.4 MG/DL (0.2-1.0); BLOOD UREA NITROGEN 17 MG/DL (7-18); CALCIUM LEVEL 9.4 MG/DL (8.5-10.1); CARBON DIOXIDE LEVEL 28 MEQ/L (21-32); CHLORIDE LEVEL 104 MEQ/L (98-107); CHOLESTEROL LEVEL 172 MG/DL (<200); CHOLESTEROL RISK RATIO 5.375 (<5); CREATININE FOR GFR 0.61 MG/DL (0.55-1.30); GLOMERULAR FILTRATION RATE > 60.0 (>51); GLUCOSE, FASTING 180 MG/DL (70-100); HDL CHOLESTEROL 32 MG/DL (>40); LDL CHOLESTEROL 100 MG/DL (<100); NON-HDL-C 140 MG/DL; POTASSIUM SERUM 4.3 MEQ/L (3.5-5.1); SODIUM LEVEL 139 MEQ/L (136-145); TOTAL 25(OH) VITAMIN D 58.4 NG/ML (30.0-100.0); TRIGLYCERIDES LEVEL 199 MG/DL (<150)
[2021-07-27 12:35] LABS: MALB URINE SIEMENS 55.3 MG/L; MAU/CREAT RATIO 31.6 MCG/MG (0.0-30.0)
== END ==
LOC: M SFHCCLAY 08:10
PROVIDERS: ATTEND Nurse Practitioner Family
DX: E78.5 Hyperlipidemia, unspecified (principal); I10 Essential (primary) hypertension; E11.9 Type 2 diabetes mellitus without complications; E03.9 Hypothyroidism, unspecified; E55.9 Vitamin D deficiency, unspecified

== ENCOUNTER → 2021-12-06 | Outpatient (REF) | payer OTHER ==
[~2021-12-06] MED LIST changes: +ATOR80TA59 PO; +CALC600T60 PO; +DULA3PEN; +ERGO500029 PO; +FISH13602 PO; -FLUC150T PO; +FLUC150T9 PO; +LOSA25TA13 PO; -LOSA25TA14 PO; +METR-265 PO; -MONT10TA10 PO; +MONT10TA97 PO; +MULT1TAB8 PO; +RA B1TAB7 PO; +TRAD5TAB
[2021-12-06 17:07] LABS: ALBUMIN 3.8 GM/DL (3.2-5.2); ALT/SGPT 34 U/L (12-78); BILIRUBIN,TOTAL 0.5 MG/DL (0.2-1.0); BLOOD UREA NITROGEN 14 MG/DL (7-18); CALCIUM LEVEL 9.4 MG/DL (8.5-10.1); CARBON DIOXIDE LEVEL 25 MEQ/L (21-32); CHLORIDE LEVEL 104 MEQ/L (98-107); CREATININE FOR GFR 0.61 MG/DL (0.55-1.30); GLOMERULAR FILTRATION RATE > 60.0 (>51); GLUCOSE, FASTING 190 MG/DL (70-100); POTASSIUM SERUM 4.8 MEQ/L (3.5-5.1); SODIUM LEVEL 138 MEQ/L (136-145); TOTAL PROTEIN 7.1 GM/DL (6.4-8.2)
[2021-12-06 19:16] LABS: HEMOGLOBIN A1c 7.7 %
== END ==
LOC: M SFHCCLAY 11:08
PROVIDERS: ATTEND Nurse Practitioner Family
DX: E11.9 Type 2 diabetes mellitus without complications (principal)

== ENCOUNTER → 2022-01-18 | Outpatient (CLI) | payer BC, OTHER | LOC: M WHC 15:22 | PROVIDERS: ATTEND Specialist | DX: Z12.31 Encounter for screening mammogram for malignant neoplasm of breast (principal) ==

== ENCOUNTER → 2022-05-30 | Outpatient (REF) | payer OTHER ==
[2022-05-30 17:21] LABS: BASO # 0.1 10^3/uL (0.0-0.2); BASO % 0.8 % (0.0-1.0); EOS # 0.2 10^3/uL (0.0-0.5); EOS % 1.8 % (0.0-3.0); HEMATOCRIT 41.7 % (36.0-47.0); HEMOGLOBIN 13.4 g/dl (12.0-15.5); LYMPH # 3.4 10^3/uL (1.5-5.0); LYMPH % 38.2 % (24.0-44.0); MEAN CORPUSCULAR HEMOGLOBIN 29.3 pg (27.0-33.0); MEAN CORPUSCULAR HGB CONC 32.1 g/dl (32.0-36.5); MEAN CORPUSCULAR VOLUME 91.2 fl (80.0-96.0); MONO # 0.7 10^3/uL (0.0-0.8); MONO % 8.1 % (2.0-8.0); NEUTROPHILS # 4.5 10^3/uL (1.5-8.5); NEUTROPHILS % 49.9 % (36.0-66.0); PLATELET COUNT, AUTOMATED 217 10^3/uL (150-450); RED BLOOD COUNT 4.57 10^6/uL (4.00-5.40)
[2022-05-30 17:22] LABS: HEMOGLOBIN A1c 7.8 %
[2022-05-30 17:59] LABS: ALBUMIN 3.7 GM/DL (3.2-5.2); ALT/SGPT 30 U/L (12-78); BILIRUBIN,TOTAL 0.5 MG/DL (0.2-1.0); BLOOD UREA NITROGEN 14 MG/DL (7-18); CARBON DIOXIDE LEVEL 28 MEQ/L (21-32); CHLORIDE LEVEL 105 MEQ/L (98-107); CHOLESTEROL LEVEL 168 MG/DL (<200); CHOLESTEROL RISK RATIO 4.307 (<5); CREATININE FOR GFR 0.58 MG/DL (0.55-1.30); GLOMERULAR FILTRATION RATE > 60.0 (>51); GLUCOSE, FASTING 174 MG/DL (70-100); HDL CHOLESTEROL 39 MG/DL (>40); LDL CHOLESTEROL 102 MG/DL (<100); NON-HDL-C 129 MG/DL; POTASSIUM SERUM 4.4 MEQ/L (3.5-5.1); SODIUM LEVEL 139 MEQ/L (136-145); TOTAL PROTEIN 6.8 GM/DL (6.4-8.2); TRIGLYCERIDES LEVEL 136 MG/DL (<150)
[2022-05-30 18:04] LABS: MALB URINE SIEMENS 9.7 MG/L; MAU/CREAT RATIO 9.1 MCG/MG (0.0-30.0)
== END ==
LOC: M SFHCCLAY 10:11
PROVIDERS: ATTEND Nurse Practitioner Family
DX: E11.9 Type 2 diabetes mellitus without complications (principal); I10 Essential (primary) hypertension; E78.5 Hyperlipidemia, unspecified; J45.909 Unspecified asthma, uncomplicated; B00.9 Herpesviral infection, unspecified; E55.9 Vitamin D deficiency, unspecified

== ENCOUNTER → 2022-10-03 | Outpatient (REF) | payer OTHER ==
[2022-10-03 18:48] LABS: HEMOGLOBIN A1c 7.8 % (4.0-6.0)
[2022-10-03 19:20] LABS: CREATININE, URINE 249.9 MG/DL
== END ==
LOC: M SFHCCLAY 09:47
PROVIDERS: ATTEND Nurse Practitioner Family
DX: E11.9 Type 2 diabetes mellitus without complications (principal); I10 Essential (primary) hypertension; E78.5 Hyperlipidemia, unspecified; J45.909 Unspecified asthma, uncomplicated; B00.9 Herpesviral infection, unspecified; E55.9 Vitamin D deficiency, unspecified

== ENCOUNTER → 2022-11-07 | Outpatient (REF) | payer OTHER ==
[2022-11-07 18:15] LABS: ALKALINE PHOSPHATASE 75 U/L (46-116); ALT/SGPT 26 U/L (7.0-40); AST/SGOT 20 U/L (<34); BILIRUBIN,TOTAL 0.6 MG/DL (0.3-1.2); BLOOD UREA NITROGEN 12 MG/DL (9-23); CALCIUM LEVEL 9.5 MG/DL (8.5-10.1); CARBON DIOXIDE LEVEL 27 MMOL/L (20-31); CHLORIDE LEVEL 102 MMOL/L (98-107); CREATININE FOR GFR 0.46 MG/DL (0.55-1.30); GLOMERULAR FILTRATION RATE > 60.0 (>51); GLUCOSE, FASTING 189 MG/DL (60-100); SODIUM LEVEL 139 MMOL/L (136-145)
== END ==
LOC: M SFHCCLAY 10:03
PROVIDERS: ATTEND Nurse Practitioner Family
DX: E83.52 Hypercalcemia (principal)

== ENCOUNTER → 2022-11-18 | Outpatient (REF) | payer OTHER | LOC: M PLALAB 13:59 | PROVIDERS: ATTEND Specialist | DX: Z01.419 Encounter for gynecological examination (general) (routine) without abnormal findings (principal) | CPT/HCPCS: 87624; G0123 ==

== ENCOUNTER → 2023-01-20 | Outpatient (CLI) | payer BC, OTHER | LOC: M WHC 14:11 | PROVIDERS: ATTEND Specialist | DX: Z12.31 Encounter for screening mammogram for malignant neoplasm of breast (principal) ==

== ENCOUNTER → 2023-02-13 | Outpatient (REF) | payer OTHER ==
[2023-02-13 19:14] LABS: ALBUMIN 3.9 G/DL (3.2-5.2); ALKALINE PHOSPHATASE 72 U/L (46-116); ALT/SGPT 26 U/L (7.0-40); AST/SGOT 19 U/L (<34); BILIRUBIN,TOTAL 0.6 MG/DL (0.3-1.2); BLOOD UREA NITROGEN 13 MG/DL (9-23); CALCIUM LEVEL 8.9 MG/DL (8.5-10.1); CARBON DIOXIDE LEVEL 26 MMOL/L (20-31); CHLORIDE LEVEL 104 MMOL/L (98-107); CREATININE FOR GFR 0.49 MG/DL (0.55-1.30); GLOMERULAR FILTRATION RATE > 60.0 (>51); GLUCOSE, FASTING 168 MG/DL (60-100); POTASSIUM SERUM 4.9 MMOL/L (3.5-5.1); SODIUM LEVEL 138 MMOL/L (136-145); TOTAL PROTEIN 7.2 G/DL (5.7-8.2)
[2023-02-13 19:26] LABS: CREATININE, URINE 232.8 MG/DL; MAU/CREAT RATIO 5.1 MCG/MG (0.0-30.0)
[2023-02-13 20:05] LABS: HEMOGLOBIN A1c 8.2 % (4.0-6.0)
== END ==
LOC: M SFHCCLAY 11:11
PROVIDERS: ATTEND Nurse Practitioner Family
DX: E11.9 Type 2 diabetes mellitus without complications (principal)

== ENCOUNTER → 2023-02-16 | Outpatient (CLI) | payer BC | LOC: M CLY 14:14 | PROVIDERS: ATTEND Nurse Practitioner Family | DX: M25.562 Pain in left knee (principal) ==

== ENCOUNTER 2023-03-20 08:54 | Day surgery (SDC) | payer BC, OTHER ==
[~2023-03-20] VITALS: Ht 152.4 cm; Wt 87.1 kg
[~2023-03-20 08:54] MED LIST changes: -DULA3PEN; +DULA3PEN SC; +NS 1,000 ML IV ONE; -TRAD5TAB; +TRAD5TAB PO
[2023-03-20] MEDS ORDERED: propofoL 500 MG/50 ML VIAL As Ordered ONE (10:08)
[2023-03-20] MEDS ORDERED: LIDOCAINE 2% 100MG/5ML SDV (FOR ANES.) As Ordered ONE (10:08)
[2023-03-20 10:40] VITALS: BP 161/77
== END 2023-03-20 11:45 | disposition home or self-care (01) ==
LOC: M OPP 08:54
PROVIDERS: ATTEND Internal Medicine Gastroenterology
DX: Z12.11 Encounter for screening for malignant neoplasm of colon (principal); Z86.010 Personal history of colon polyps; K63.5 Polyp of colon; K64.0 First degree hemorrhoids; Z79.02 Long term (current) use of antithrombotics/antiplatelets; Z79.4 Long term (current) use of insulin; Z79.51 Long term (current) use of inhaled steroids; Z79.899 Other long term (current) drug therapy; Z88.0 Allergy status to penicillin; Z88.2 Allergy status to sulfonamides; Z88.8 Allergy status to other drugs, medicaments and biological substances; Z91.040 Latex allergy status

== ENCOUNTER → 2023-05-16 | Outpatient (REF) | payer OTHER ==
[~2023-05-16] MED LIST changes: -NS 1,000 ML IV ONE
[2023-05-16 19:20] LABS: ALBUMIN 3.6 G/DL (3.2-5.2); ALKALINE PHOSPHATASE 67 U/L (46-116); ALT/SGPT 22 U/L (7.0-40); AST/SGOT 11 U/L (<34); BILIRUBIN,TOTAL 0.6 MG/DL (0.3-1.2); BLOOD UREA NITROGEN 12 MG/DL (9-23); CALCIUM LEVEL 8.9 MG/DL (8.3-10.6); CARBON DIOXIDE LEVEL 26 MMOL/L (20-31); CHLORIDE LEVEL 104 MMOL/L (98-107); CREATININE FOR GFR 0.42 MG/DL (0.55-1.30); GLOMERULAR FILTRATION RATE > 60.0 (>45); GLUCOSE, FASTING 167 MG/DL (74-106); POTASSIUM SERUM 4.3 MMOL/L (3.5-5.1); SODIUM LEVEL 139 MMOL/L (136-145); TOTAL PROTEIN 6.3 G/DL (5.7-8.2)
== END ==
LOC: M SFHCCLAY 10:28
PROVIDERS: ATTEND Nurse Practitioner Family
DX: E11.9 Type 2 diabetes mellitus without complications (principal)

== ENCOUNTER → 2023-09-04 | Outpatient (REF) | payer OTHER ==
[~2023-09-04] MED LIST changes: +CLAR500T97; +DULA4.5P; +METR-265
[2023-09-04 19:06] LABS: HEMOGLOBIN A1c 8.5 % (4.0-6.0)
[2023-09-04 19:08] LABS: ALBUMIN 3.8 G/DL (3.2-5.2); ALKALINE PHOSPHATASE 81 U/L (46-116); ALT/SGPT 29 U/L (7.0-40); AST/SGOT 15 U/L (<34); BILIRUBIN,TOTAL 0.6 MG/DL (0.3-1.2); BLOOD UREA NITROGEN 13 MG/DL (9-23); CALCIUM LEVEL 9.5 MG/DL (8.3-10.6); CARBON DIOXIDE LEVEL 29 MMOL/L (20-31); CHLORIDE LEVEL 102 MMOL/L (98-107); CREATININE FOR GFR 0.44 MG/DL (0.55-1.30); GLOMERULAR FILTRATION RATE > 60.0 (>45); GLUCOSE, FASTING 177 MG/DL (74-106); POTASSIUM SERUM 4.6 MMOL/L (3.5-5.1); SODIUM LEVEL 139 MMOL/L (136-145); TOTAL PROTEIN 6.7 G/DL (5.7-8.2)
== END ==
LOC: M SFHCCLAY 11:08
PROVIDERS: ATTEND Nurse Practitioner Family
DX: E11.9 Type 2 diabetes mellitus without complications (principal)

== ENCOUNTER → 2023-12-06 | Outpatient (REF) | payer OTHER, BC | LOC: M SFHCWAGY 13:16 | PROVIDERS: ATTEND Specialist | DX: Z01.419 Encounter for gynecological examination (general) (routine) without abnormal findings (principal) ==

== ENCOUNTER → 2024-01-22 | Outpatient (CLI) | payer BC | LOC: M WHC 10:05 | PROVIDERS: ATTEND Specialist | DX: Z12.31 Encounter for screening mammogram for malignant neoplasm of breast (principal) ==

== ENCOUNTER → 2024-04-04 | Outpatient (REF) | payer BC ==
[2024-04-04 11:24] LABS: BASO # 0.1 10^3/uL (0.0-0.2); BASO % 0.8 % (0.0-1.0); EOS # 0.2 10^3/uL (0.0-0.5); EOS % 1.5 % (0.0-3.0); HEMATOCRIT 39.1 % (36.0-47.0); HEMOGLOBIN 12.9 g/dl (12.0-15.5); LYMPH # 3.1 10^3/uL (1.5-5.0); LYMPH % 29.3 % (24.0-44.0); MEAN CORPUSCULAR HEMOGLOBIN 30.4 pg (27.0-33.0); MONO # 0.8 10^3/uL (0.0-0.8); NEUTROPHILS # 6.2 10^3/uL (1.5-8.5); NEUTROPHILS % 59.3 % (36.0-66.0); PLATELET COUNT, AUTOMATED 201 10^3/uL (150-450); RED BLOOD COUNT 4.25 10^6/uL (4.00-5.40); WHITE BLOOD COUNT 10.5 10^3/uL (4.0-10.0)
[2024-04-04 11:46] LABS: HEMOGLOBIN A1c 7.6 % (4.0-6.0)
[2024-04-04 11:48] LABS: CREATININE, URINE 62.3 MG/DL
[2024-04-04 11:49] LABS: MALB URINE SIEMENS < 3.0 MG/L; MAU/CREAT RATIO 4.8 MCG/MG (0.0-30.0)
[2024-04-04 11:51] LABS: ALBUMIN 3.6 G/DL (3.2-5.2); ALKALINE PHOSPHATASE 75 U/L (46-116); ALT/SGPT 25 U/L (7.0-40); AST/SGOT 10 U/L (<34); BILIRUBIN,TOTAL 0.5 MG/DL (0.3-1.2); BLOOD UREA NITROGEN 16 MG/DL (9-23); CALCIUM LEVEL 9.2 MG/DL (8.3-10.6); CARBON DIOXIDE LEVEL 27 MMOL/L (20-31); CHLORIDE LEVEL 106 MMOL/L (98-107); CHOLESTEROL LEVEL 145 MG/DL (<200); CHOLESTEROL RISK RATIO 4.03 (<5); CREATININE FOR GFR 0.44 MG/DL (0.55-1.30); GLOMERULAR FILTRATION RATE > 60.0 (>45); GLUCOSE, FASTING 175 MG/DL (74-106); HDL CHOLESTEROL 35.9 MG/DL (>40); LDL CHOLESTEROL 91.7 MG/DL (<100); NON-HDL-C 109.1 MG/DL; POTASSIUM SERUM 4.3 MMOL/L (3.5-5.1); SODIUM LEVEL 140 MMOL/L (136-145); TOTAL PROTEIN 6.4 G/DL (5.7-8.2); TRIGLYCERIDES LEVEL 87 MG/DL (<150)
[2024-04-04 11:52] LABS: THYROID STIMULATING HORMONE 2.544 uIU/ML (0.55-4.78)
[2024-04-04 11:53] LABS: FREE T4 1.11 NG/DL (0.89-1.76)
== END ==
LOC: M SFHCCLAY 08:32
PROVIDERS: ATTEND Nurse Practitioner Family
DX: I10 Essential (primary) hypertension (principal); E11.9 Type 2 diabetes mellitus without complications; E78.5 Hyperlipidemia, unspecified; J45.909 Unspecified asthma, uncomplicated; B00.9 Herpesviral infection, unspecified; E55.9 Vitamin D deficiency, unspecified

== ENCOUNTER → 2024-05-10 | Outpatient (CLI) | payer BC | LOC: M SOG 07:58 | PROVIDERS: ATTEND Physician Assistant | DX: M25.531 Pain in right wrist (principal) ==

== ENCOUNTER → 2024-10-03 | Outpatient (REF) | payer BC ==
[~2024-10-03] MED LIST changes: -ADV250INH INH; +ADVA1AER9 INH; +ATEN25TA; +FLUT1BLS2; +SEMA2PEN
[2024-10-03 12:13] LABS: ALKALINE PHOSPHATASE 78 U/L (35-104); ALT/SGPT 31 U/L (7.0-40); AST/SGOT 15 U/L (<34); BILIRUBIN,TOTAL 0.8 MG/DL (0.3-1.2); BLOOD UREA NITROGEN 13 MG/DL (9-23); CALCIUM LEVEL 10.2 MG/DL (8.3-10.6); CARBON DIOXIDE LEVEL 27 MMOL/L (20-31); CHLORIDE LEVEL 103 MMOL/L (98-107); CREATININE FOR GFR 0.51 MG/DL (0.55-1.30); GLOMERULAR FILTRATION RATE > 60.0 (>45); GLUCOSE, FASTING 168 MG/DL (74-106); POTASSIUM SERUM 3.9 MMOL/L (3.5-5.1); SODIUM LEVEL 140 MMOL/L (136-145)
[2024-10-03 12:15] LABS: HEMOGLOBIN A1c 8.3 % (4.0-6.0)
== END ==
LOC: M SFHCCLAY 08:20
PROVIDERS: ATTEND Nurse Practitioner Family
DX: E11.9 Type 2 diabetes mellitus without complications (principal)

== ENCOUNTER → 2024-12-27 | Outpatient (REF) | payer BC ==
[2024-12-31 13:23] LABS: HPV APTIMA Detected (Not Detected)
== END ==
LOC: M SFHCWAGY 14:46
PROVIDERS: ATTEND Specialist
DX: Z01.419 Encounter for gynecological examination (general) (routine) without abnormal findings (principal); R87.9 Unspecified abnormal finding in specimens from female genital organs
CPT/HCPCS: 87624; G0123

== ENCOUNTER → 2025-01-03 | Outpatient (REF) | payer BC ==
[2025-01-03 19:50] LABS: ALBUMIN 3.9 G/DL (3.2-5.2); ALKALINE PHOSPHATASE 84 U/L (35-104); ALT/SGPT 29 U/L (7.0-40); AST/SGOT 14 U/L (<34); BILIRUBIN,TOTAL 0.5 MG/DL (0.3-1.2); BLOOD UREA NITROGEN 16 MG/DL (9-23); CALCIUM LEVEL 9.5 MG/DL (8.3-10.6); CARBON DIOXIDE LEVEL 26 MMOL/L (20-31); CHLORIDE LEVEL 106 MMOL/L (98-107); CREATININE FOR GFR 0.46 MG/DL (0.55-1.30); GLOMERULAR FILTRATION RATE > 60.0 (>45); GLUCOSE, FASTING 248 MG/DL (74-106); MAGNESIUM LEVEL 1.5 MG/DL (1.8-2.4); POTASSIUM SERUM 4.7 MMOL/L (3.5-5.1); SODIUM LEVEL 143 MMOL/L (136-145)
[2025-01-03 20:35] LABS: HEMOGLOBIN A1c 9.6 % (4.0-6.0)
== END ==
LOC: M SFHCCLAY 10:20
PROVIDERS: ATTEND Nurse Practitioner Family
DX: I10 Essential (primary) hypertension (principal); E11.9 Type 2 diabetes mellitus without complications

== ENCOUNTER → 2025-01-24 | Outpatient (CLI) | payer BC | LOC: M WHC 11:01 | PROVIDERS: ATTEND Specialist | DX: Z12.31 Encounter for screening mammogram for malignant neoplasm of breast (principal); R92.313 Mammographic fatty tissue density, bilateral breasts ==

== ENCOUNTER → 2025-05-15 | Outpatient (REF) | payer BC ==
[~2025-05-15] MED LIST changes: +ACYC-438 PO; -ACYC1TAB PO
[2025-05-15 13:59] LABS: ALT/SGPT 25 U/L (7.0-40); AST/SGOT 19 U/L (<34); CALCIUM LEVEL 9.5 MG/DL (8.3-10.6); CARBON DIOXIDE LEVEL 25 MMOL/L (20-31); CHLORIDE LEVEL 104 MMOL/L (98-107); CREATININE FOR GFR 0.52 MG/DL (0.55-1.30); GLOMERULAR FILTRATION RATE > 90.0 (>45); MAGNESIUM LEVEL 1.7 MG/DL (1.8-2.4); POTASSIUM SERUM 4.1 MMOL/L (3.5-5.1); SODIUM LEVEL 143 MMOL/L (136-145)
[2025-05-15 14:06] LABS: ESTIMATED AVERAGE GLUCOSE 183.0 MG/DL (60-110)
== END ==
LOC: M SFHCCLAY 07:55
PROVIDERS: ATTEND Nurse Practitioner Family
DX: I10 Essential (primary) hypertension (principal); E11.9 Type 2 diabetes mellitus without complications

== ENCOUNTER → 2025-07-03 | Outpatient (REF) | payer BC | LOC: M SFHCCLAY 17:19 | PROVIDERS: ATTEND Physician Assistant | DX: R30.0 Dysuria (principal) ==

== ENCOUNTER → 2025-07-11 | Outpatient (REF) | payer BC ==
[2025-07-11 13:00] LABS: APPEARANCE, URINE HAZY (CLEAR); BACTERIA, URINE AUTO NEGATIVE (NEGATIVE); BILIRUBIN, URINE AUTO NEGATIVE (NEGATIVE); BLOOD, URINE BLOOD NEGATIVE (NEGATIVE); CALCIUM OXALATE CRYSTALS LARGE; GLUCOSE, URINE (UA) AUTO NEGATIVE (NEGATIVE); KETONE, URINE AUTO NEGATIVE (NEGATIVE); LEUKOCYTE ESTERASE, URINE AUTO TRACE (NEGATIVE); MUCUS, URINE SMALL (NEGATIVE); NITRITE, URINE AUTO NEGATIVE (NEGATIVE); PROTEIN, URINE AUTO NEGATIVE (NEGATIVE); RBC, URINE AUTO 4 /HPF (0-3); SPECIFIC GRAVITY URINE AUTO 1.021 (1.002-1.035); SQUAMOUS EPITHELIAL CELL UR AU 1 /HPF (0-6); UROBILINOGEN, URINE AUTO 0.2 mg/dL (0.0-2.0); WBC, URINE AUTO 17 /HPF (0-3)
== END ==
LOC: M SFHCCLAY 07:59
PROVIDERS: ATTEND Physician Assistant
DX: R30.0 Dysuria (principal)

== ENCOUNTER → 2025-08-18 | Outpatient (REF) | payer BC ==
[2025-08-18 13:17] LABS: ALT/SGPT 21 U/L (7.0-40); AST/SGOT 16 U/L (<34); CALCIUM LEVEL 9.3 MG/DL (8.3-10.6); CARBON DIOXIDE LEVEL 28 MMOL/L (20-31); CHLORIDE LEVEL 105 MMOL/L (98-107); CREATININE FOR GFR 0.51 MG/DL (0.55-1.30); GLOMERULAR FILTRATION RATE > 90.0 (>45); POTASSIUM SERUM 4.5 MMOL/L (3.5-5.1); SODIUM LEVEL 143 MMOL/L (136-145)
[2025-08-18 13:33] LABS: CA15-3 ANTIGEN 9.6 U/ML (<32.4)
[2025-08-18 20:32] LABS: BASO # 0.1 10^3/uL (0.0-0.2); BASO % 0.7 % (0.0-1.0); EOS # 0.1 10^3/uL (0.0-0.5); EOS % 1.4 % (0.0-3.0); LYMPH # 2.6 10^3/uL (1.5-5.0); LYMPH % 34.8 % (24.0-44.0); MONO # 0.6 10^3/uL (0.0-0.8); MONO % 8.2 % (2.0-8.0); NEUTROPHILS # 4.0 10^3/uL (1.5-8.5); NEUTROPHILS % 53.7 % (36.0-66.0); PLATELET COUNT, AUTOMATED 312 10^3/uL (150-450)
== END ==
LOC: M LABDRAWC 12:30
DX: I10 Essential (primary) hypertension (principal); E11.9 Type 2 diabetes mellitus without complications

== ENCOUNTER → 2025-08-18 | Outpatient (REF) | payer BC ==
[~2025-08-18] MED LIST changes: +MACR100C43 PO; +TIRZ10PE
[2025-08-18 13:16] LABS: ALT/SGPT 19 U/L (7.0-40); AST/SGOT 16 U/L (<34); CALCIUM LEVEL 9.4 MG/DL (8.3-10.6); CARBON DIOXIDE LEVEL 28 MMOL/L (20-31); CHLORIDE LEVEL 105 MMOL/L (98-107); CREATININE FOR GFR 0.51 MG/DL (0.55-1.30); GLOMERULAR FILTRATION RATE > 90.0 (>45); POTASSIUM SERUM 4.4 MMOL/L (3.5-5.1); SODIUM LEVEL 143 MMOL/L (136-145)
[2025-08-18 13:42] LABS: ESTIMATED AVERAGE GLUCOSE 154.0 MG/DL (60-110)
== END ==
LOC: M SFHCCLAY 08:56
PROVIDERS: ATTEND Nurse Practitioner Family
DX: I10 Essential (primary) hypertension (principal); E11.9 Type 2 diabetes mellitus without complications

== ENCOUNTER → 2025-10-01 | Outpatient (CLI) | payer BC | LOC: M RAD 12:20 | PROVIDERS: ATTEND Nurse Practitioner Family | DX: I70.203 Unspecified atherosclerosis of native arteries of extremities, bilateral legs (principal); E11.9 Type 2 diabetes mellitus without complications; R60.0 Localized edema ==

== ENCOUNTER → 2025-10-21 | Outpatient (CLI) | payer BC | LOC: M WHC 10:39 | DX: C50.912 Malignant neoplasm of unspecified site of left female breast (principal); R92.313 Mammographic fatty tissue density, bilateral breasts | CPT/HCPCS: 76642; 77066; G0279 ==